=== PATIENT | male | born 1980 | race Two or more races ===

== ENCOUNTER 2017-06-27 15:55 | Emergency (ER) | payer OTHER ==
[2017-06-27] MEDS ORDERED: NO MEDICATIONS (16:04)
== END 2017-06-27 17:20 | disposition home or self-care (01) ==
LOC: SED 15:55
DX: S01.01XA Laceration without foreign body of scalp, initial encounter (principal); F17.210 Nicotine dependence, cigarettes, uncomplicated; Z23 Encounter for immunization; W22.8XXA Striking against or struck by other objects, initial encounter
CPT/HCPCS: 12001; 90471; 90715; 99283